=== PATIENT | male | born 1995 | race Caucasian/White ===

== ENCOUNTER 2019-12-02 17:12 | Emergency (ER) | payer SELFPAY ==
[~2019-12-02] VITALS: Ht 174 cm; Wt 103.0 kg
[2019-12-02 17:22] VITALS: BP 143/75
--- NOTE | 2019-12-02 17:32 | ED Upper Extremity ---
General Chief Complaint: Upper Extremity Stated Complaint: SMASHED RIGHT ARM,SWELLING/PAIN Source: patient Exam Limitations: no limitations History of Present Illness Date Seen by Provider: Dec 02, 2019 Time Seen by Provider: 17:13 Initial Comments 24-year-old male presenting with complaints of right elbow and forearm pain. 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 He reports that he was coming up alongside another forklift and many increased his head up off of he accelerated her it was supposed to stop but it did not stop. The forklift his being sent maintenance because of this. When the forklift did not stop it ended up smashing his right elbow and forearm between the two forklifts. He had some pain but as the day progressed he noticed he had tingling/numbness like his fingers were asleep if he straightened his arm out. His hay wanted him to come get xrays and be checked out in the ED. He already did a urine drug test at work. He has not taken anything for pain since the injury around 1400 this afternoon. Allergies and Home Medications Allergies Uncoded Allergies: Miguel (Allergy, Unknown, 12/02/19) Home Medications Ibuprofen 800 Mg Tablet, 800 MG PO Q8H PRN for PAIN Prescribed by: LISSETT CORONEL on 12/02/19 5506 Patient Home Medication List Home Medication List Reviewed: Yes Review of Systems Constitutional: No chills, No fever EENTM: no symptoms reported Respiratory: no symptoms reported Cardiovascular: no symptoms reported Gastrointestinal: no symptoms reported Genitourinary: no symptoms reported Musculoskeletal: see HPI Skin: No change in color (no bruising showing up yet on his elbow/forearm) Psychiatric/Neurological: Tingling (right hand and fingers tingle and feel like they are asleep when he straightens his arm out) Past Djwmzlp-Yhfvxy-Wrqzai Hx Past Med/Social Hx: Reviewed Nursing Past Med/Soc Hx Patient Social History Alcohol Use: Denies Use Recreational Drug Use: No Smoking Status: Current Everyday Smoker Type Used: Cigarettes 2nd Hand Smoke Exposure: No Recent Foreign Travel: No Contact w/Someone Who Travel: No Recent Hopitalizations: No Physical Abuse: No Sexual Abuse: No Mistreated: No Fear: No Seasonal Allergies Seasonal Allergies: No Past Medical History Surgeries: Yes Tonsillectomy Respiratory: No Cardiac: No Neurological: No Genitourinary: No Gastrointestinal: No Musculoskeletal: No Endocrine: No HEENT: No Cancer: No Psychosocial: No Integumentary: No Blood Disorders: No Physical Exam Vital Signs Vital Signs - First Documented 12/02/19 17:22 Temp 37.0 Pulse 86 Resp 16 B/P (MAP) 143/75 (97) Pulse Ox 96 O2 Delivery Room Air Capillary Refill : Height, Weight, BMI Height: '" Weight: lbs. oz. kg; BMI Method: General Appearance: WD/WN, no apparent distress Cardiovascular: normal peripheral pulses Elbow/Forearm: normal ROM, Right, bone tenderness, deformity, ecchymosis, pain, soft tissue tenderness, swelling (mild) Wrist: Yes normal inspection, Yes non-tender, Yes no evidence of injury, Yes normal ROM Hand: normal inspection, non-tender, no evidence of injury, normal ROM Neurologic/Tendon: normal motor functions, normal tendon functions, sensory deficit (reports that has sensation intact to light touch on right hand and fingers but that it feels dulled compared to left hand) Neurologic/Psychiatric: alert, oriented x 3 Skin: normal color, warm/dry Progress/Results/Core Measures Results/Orders My Orders Orders - LISSETT CORONEL MD Elbow 3 View Right (12/02/19 17:25) Forearm 2 View Right (12/02/19 17:25) Ice: Apply To Affected Area (12/02/19 17:25) Elevate Affected Extremity (12/02/19 17:25) Vital Signs/I&O 12/02/19 17:22 Temp 37.0 Pulse 86 Resp 16 B/P (MAP) 143/75 (97) Pulse Ox 96 O2 Delivery Room Air Progress Progress Note #1: Progress Note ice and elevate elbow and proximal forearm where he had injury. offered ibuprofen but pt stated that his employer was very strict about medicine and he would have to get permission before taking anything. Order xrays of right elbow and forearm. Progress Note #2: Progress Note No acute fracture or dislocation seen on imaging. Treat symptomatically and rest right arm for next week. See Work comp clinic Friday or Friday for follow up. Limit use of right arm to no more than 5 pounds of pushing, pulling, lifting for next week. Counseled to avoid compression for next few days as it may aggravate the nerve contusion. Diagnostic Imaging Diagonstic Imaging: Xray Plain Films/CT/US/NM/MRI: forearm, elbow Comments [facility], [place] NAME: PJ LOFTON [facility] REC#: [id number] PT STATUS: REG ER : 1995 PHYSICIAN: LISSETT CORONEL MD ADMIT DATE: 12/02/19/ER FS Draft Date of Exam:12/02/19 ELBOW 3 VIEW RIGHT INDICATION: Smashed arm in between forklifts today. Pain. EXAMINATION: Right elbow, 12/02/2019. FINDINGS: Three views of the elbow. There is no evidence for an acute fracture or dislocation. The joint spaces are well maintained. There is no significant soft tissue swelling. IMPRESSION: No acute process. Dictated on workstation # [id number] Dict: 12/02/19 174 Trans: 12/02/191750 PJE [id number] Interpreted by: ISSA ANAND MD Electronically signed by: [facility] [place] NAME: PJ LOFTON [facility] REC#: [id number] PT STATUS: REG ER : 1995 PHYSICIAN: LISSETT CORONEL MD ADMIT DATE: 12/02/19/ER FS Draft Date of Exam:12/02/19 FOREARM 2 VIEW RIGHT INDICATION: Smashed arm in between forklifts. EXAMINATION: Right forearm, 12/02/2019. FINDINGS: Three views of the forearm. There is no evidence for an acute fracture or dislocation. The joint spaces are well maintained. There is no significant soft tissue swelling. IMPRESSION: No acute process. Dictated on workstation # [id number] Dict: 12/02/191745 Trans: 12/02/19 175 PJE [id number] Interpreted by: ISSA ANAND MD Electronically signed by: Departure Impression Primary Impression: Crushing injury of right elbow, initial encounter Additional Impression: Contusion of right ulnar nerve Qualified Codes: S54.01XA - Injury of ulnar nerve at forearm level, right arm, initial encounter Disposition: 01 HOME, SELF-CARE Condition: Stable Departure-Patient Inst. Decision time for Depature: 18:03 Referrals: NO,LOCAL PHYSICIAN (PCP/Family) Primary Care Physician Patient Instructions: Crush Injury (DC), Contusion (DC) Add. Discharge Instructions: Use ice 15-20 minutes every few hours to help with swelling and pain. Use Ibuprofen 800 mg every 8 hours to help with inflammation and pain. Check back with Work Comp clinic for follow up FridayDecember 02 or FridayDecember 05. Limit use of Right arm to no lifting, pulling and/or pushing over 5 pounds through December 08 All discharge instructions reviewed with patient and/or family. Voiced understan iman. Scripts Ibuprofen (Ibuprofen) 800 Mg Tablet 800 MG PO Q8H PRN for PAIN for 10 Days, #30 TAB 0 Refills Prov: LISSETT CORONEL MD 12/02/19 LISSETT CORONEL MD Dec 02, 2019 17:32
--- NOTE | 2019-12-02 17:52 | Diagnostic Imaging Report ---
INDICATION: Smashed arm in between forklifts today. Pain. EXAMINATION: Right elbow, 12/02/2019. FINDINGS: Three views of the elbow. There is no evidence for an acute fracture or dislocation. The joint spaces are well maintained. There is no significant soft tissue swelling. IMPRESSION: No acute process. Dictated by: Dictated on workstation # [id number]
--- NOTE | 2019-12-02 17:53 | Diagnostic Imaging Report ---
INDICATION: Smashed arm in between forklifts. EXAMINATION: Right forearm, 12/02/2019. FINDINGS: Three views of the forearm. There is no evidence for an acute fracture or dislocation. The joint spaces are well maintained. There is no significant soft tissue swelling. IMPRESSION: No acute process. Dictated by: Dictated on workstation # [id number]
[2019-12-02] MEDS ORDERED: IBUP-1780 PO (18:06)
== END 2019-12-02 18:10 | disposition home or self-care (01) ==
LOC: ER FS 17:14
DX: S57.01XA Crushing injury of right elbow, initial encounter (principal); S54.01XA Injury of ulnar nerve at forearm level, right arm, initial encounter; F17.210 Nicotine dependence, cigarettes, uncomplicated; Z88.4 Allergy status to anesthetic agent; W24.0XXA Contact with lifting devices, not elsewhere classified, initial encounter
CPT/HCPCS: 73080; 73090

== ENCOUNTER 2020-01-10 23:41 | Emergency (ER) | payer SELFPAY ==
[~2020-01-10 23:41] MED LIST: IBUP-1780 PO
[2020-01-11] MEDS ORDERED: DICL75TA2 PO (00:01)
[2020-01-11] MEDS ORDERED: CEPH500T PO (00:01)
--- NOTE | 2020-01-11 00:01 | ED EENT ---
History of Present Illness General Chief Complaint: Dental Problems/Pain Stated Complaint: TOOTH INFECTION Source: patient, RN/MD, RN notes reviewed, old records Exam Limitations: no limitations History of Present Illness Date Seen by Provider: Jan 10, 2020 Time Seen by Provider: 23:45 Initial Comments This patient is a 24-year-old male that presents to the emergency department with complaint of fractured tooth concerns for possible abscess. States it started earlier today. Patient does not appear to be in acute pain is drinking a bottle chocolate milk during exam. Timing/Duration: this morning Location: mouth, dental Prearrival Treatment: no prearrival treatment Allergies and Home Medications Allergies Uncoded Allergies: Miguel (Allergy, Unknown, 12/02/19) Home Medications Ibuprofen 800 Mg Tablet, 800 MG PO Q8H PRN for PAIN Prescribed by: LISSETT CORONEL on 12/02/19 1806 Patient Home Medication List Home Medication List Reviewed: Yes Review of Systems Review of Systems Constitutional: see HPI Eyes: Denies No Symptoms Reported, Denies See HPI, Denies Blindness, Denies Blurred Vision, Denies Drainage, Denies Decreased Acuity, Denies Foreign Body Sensation, Denies Inflammation, Denies Pain, Denies Photophobia, Denies Previous Injury, Denies Shadows, Denies Tunnel Vision, Denies Vision Changes, Denies Contact Lenses, Denies Glasses, Denies Other Ears: Denies No Symptoms Reported, Denies See HPI, Denies Dizziness, Denies Pain, Denies Tinnitus, Denies Bloody Discharge, Denies Clear Discharge, Denies Purulent Discharge, Denies Serosanguinous Discharge, Denies Previous Injury, Denies Other Nose: denies no symptoms reported, denies see HPI, denies clots, denies congestion, denies epistaxis, denies pain, denies bloody discharge, denies clear discharge, denies purulent discharge, denies serosanguinous discharge, denies previous injury, denies other Mouth: denies no symptoms reported; see HPI; denies clots, denies loose teeth; pain; denies swelling, denies bloody discharge, denies clear discharge, denies purulent discharge, denies serosanguinous discharge, denies previous injury, denies other Throat: denies no symptoms reported, denies see HPI, denies pain, denies swelling, denies discharge, denies neck stiffness, denies hoarse, denies aphonia, denies muffled, denies painful swallowing, denies difficulty with fluids, denies previous injury, denies other Respiratory: No no symptoms reported, No see HPI, No cough, No dyspnea on exertion, No hemoptysis, No orthopnea, No phlegm, No short of breath, No stridor, No wheezing, No other Cardiovascular: No no symptoms reported, No see HPI, No chest pain, No edema, No Hx of Intervention, No palpitations, No syncope, No vascular heart diseas, No other Gastrointestinal: No RUQ, No LUQ, No RLQ, No LLQ, No no symptoms reported, No see HPI, No abdominal pain, No constipation, No diarrhea, No dysphagia, No hematemesis, No heartburn, No jaundice, No loss of appetite, No melena, No nausea, No vomiting, No other All Other Systems Reviewed Negative Unless Noted: Yes Past Authxre-Awkhng-Ogeqpz Hx Patient Social History Alcohol Use: Denies Use Recreational Drug Use: No Smoking Status: Never a Smoker Type Used: Cigarettes 2nd Hand Smoke Exposure: No Recent Foreign Travel: No Contact w/Someone Who Travel: No Recent Hopitalizations: No Physical Abuse: No Sexual Abuse: No Seasonal Allergies Seasonal Allergies: No Past Medical History Surgeries: Yes Tonsillectomy Respiratory: No Cardiac: No Neurological: No Genitourinary: No Gastrointestinal: No Musculoskeletal: No Endocrine: No HEENT: No Cancer: No Psychosocial: No Integumentary: No Blood Disorders: No Physical Exam Height, Weight, BMI Height: '" Weight: lbs. oz. kg; 34.00 BMI Method: General Appearance: WD/WN, no apparent distress, mild distress, moderate distress, severe distress, cachetic Mouth/Throat: dental tenderness (dental fracture right lower molar.) Cardiovascular: normal peripheral pulses, regular rate, rhythm, no edema, no gallop, no JVD, no murmur Respiratory: chest non-tender, lungs clear, normal breath sounds, no respiratory distress, no accessory muscle use Gastrointestinal: normal bowel sounds, non tender, soft, no organomegaly, no pulsatile mass Skin: normal color, warm/dry Progress/Results/Core Measures Progress Progress Note : Time: 23:59 Progress Note Take medications as instructed. Follow-up with dentistry her primary care physician as soon as possible. May use Tylenol Motrin when necessary as needed. Anbesol or Orajel when necessary as needed. Departure Impression Primary Impression: Dental caries Additional Impression: Fractured tooth Disposition: HOME, SELF-CARE Condition: Stable Departure-Patient Inst. Decision time for Depature: 00:00 Referrals: NO,LOCAL PHYSICIAN (PCP) Primary Care Physician Patient Instructions: Fractured Tooth (DC), Tooth Decay, Adult (DC) Add. Discharge Instructions: Take medications as instructed. Follow-up with dentistry her primary care physician as soon as possible. May use Tylenol Motrin when necessary as needed. Anbesol or Orajel when necessary as needed. All discharge instructions reviewed with patient and/or family. Voiced understanding. Scripts Diclofenac Sodium (Diclofenac Sodium) 75 Mg Tablet.dr 75 MG PO BID for 10 Days, #20 TAB 0 Refills Prov: FAN DOWELL MD 01/11/20 Cephalexin (Cephalexin) 500 Mg Tablet 500 MG PO BID, #20 TAB 0 Refills Prov: FAN DOWELL MD 01/11/20 FAN DOWELL MD Jan 11, 2020 00:01
[2020-01-11 00:03] VITALS: BP 170/87
== END 2020-01-11 00:05 | disposition home or self-care (01) ==
LOC: EDUNIT# 23:41 → ER FS 23:44
DX: S02.5XXA Fracture of tooth (traumatic), initial encounter for closed fracture (principal); K02.9 Dental caries, unspecified; X58.XXXA Exposure to other specified factors, initial encounter
CPT/HCPCS: 99282

== ENCOUNTER 2020-09-18 22:35 | Emergency (ER) | payer SELFPAY ==
[~2020-09-18 22:35] MED LIST changes: +CEPH500T PO; +DICL75TA2 PO
--- NOTE | 2020-09-18 22:41 | ED EENT ---
History of Present Illness General Stated Complaint: TOOTH PAIN History of Present Illness Date Seen by Provider: Sep 18, 2020 Time Seen by Provider: 22:41 Initial Comments 25-year-old male presents with left-sided dental abscess. Patient has multiple severe dental caries on the left side with a couple infected teeth. Patient reports to be about 8 to 10 days before he has been to see a dentist. Patient here for an antibiotic. Reports that the symptoms are in the pain started this morning. He denies any fevers, jaw swelling, difficulty swallowing or other systemic complaints Allergies and Home Medications Allergies Uncoded Allergies: Miguel (Allergy, Unknown, 12/02/19) Home Medications Cephalexin 500 Mg Tablet, 500 MG PO BID Prescribed by: FAN DOWELL on 01/11/20 0001 Diclofenac Sodium 75 Mg Tablet.dr, 75 MG PO BID Prescribed by: FAN DOWELL on 01/11/20 0001 Ibuprofen 800 Mg Tablet, 800 MG PO Q8H PRN for PAIN Prescribed by: LISSETT CORONEL on 12/02/19 1806 Patient Home Medication List Home Medication List Reviewed: Yes Review of Systems Review of Systems Constitutional: no symptoms reported Eyes: No Symptoms Reported Ears: No Symptoms Reported Nose: no symptoms reported Mouth: see HPI Throat: no symptoms reported Respiratory: no symptoms reported Cardiovascular: no symptoms reported Musculoskeletal: no symptoms reported Past Gqafmxw-Slddyl-Nugnyr Hx Past Med/Social Hx: Reviewed Nursing Past Med/Soc Hx Patient Social History Type Used: Cigarettes 2nd Hand Smoke Exposure: No Recent Hopitalizations: No Seasonal Allergies Seasonal Allergies: No Past Medical History Surgeries: Yes Tonsillectomy Respiratory: No Cardiac: No Neurological: No Genitourinary: No Gastrointestinal: No Musculoskeletal: No Endocrine: No HEENT: No Cancer: No Psychosocial: No Integumentary: No Blood Disorders: No Physical Exam Vital Signs Vital Signs - First Documented 09/18/20 22:40 Temp 36.9 Pulse 88 Resp 16 B/P (MAP) 171/86 (114) Pulse Ox 100 O2 Delivery Room Air Height, Weight, BMI Height: '" Weight: lbs. oz. kg; 34.00 BMI Method: General Appearance: WD/WN, no apparent distress Mouth/Throat: other (Multiple left-sided severe dental caries with associated infection and early abscess) Neck: full range of motion Cardiovascular: normal peripheral pulses Respiratory: lungs clear Gastrointestinal: non tender, soft Neurologic/Psychiatric: alert, normal mood/affect, oriented x 3 Skin: normal color, warm/dry Progress/Results/Core Measures Results/Orders My Orders Orders - JACKIE KIMBROUGH DO Amoxicillin Capsule (Polymox Capsule) (09/18/20 22:48) Vital Signs/I&O 09/18/20 22:40 Temp 36.9 Pulse 88 Resp 16 B/P (MAP) 171/86 (114) Pulse Ox 100 O2 Delivery Room Air Departure Impression Primary Impression: Dental abscess Additional Impression: Dental caries Disposition: HOME, SELF-CARE Condition: Stable Departure-Patient Inst. Referrals: NO,LOCAL PHYSICIAN (PCP/Family) Primary Care Physician Patient Instructions: Tooth Abscess (DC), Tooth Decay, Adult (DC) Add. Discharge Instructions: Take medications as prescribed, follow-up with your dentist as soon as possible Scripts Amoxicillin (Amoxicillin) 500 Mg Capsule 500 MG PO TID, #30 CAP 0 Refills Prov: JACKIE KIMBROUGH DO 09/18/20 Diclofenac Sodium (Diclofenac Sodium) 75 Mg Tablet.dr 75 MG PO BID for 10 Days, #20 TAB 0 Refills Prov: JACKIE KIMBROUGH DO 09/18/20 JACKIE KIMBROUGH DO Sep 18, 2020 22:41
[2020-09-18] MEDS ORDERED: AMOXICILLIN 500 MG (POLYMOX) CAP PO STA (22:48)
[2020-09-18 23:02] VITALS: BP 171/86
[2020-09-18] MEDS ORDERED: AMOX500C2 PO (23:03)
[2020-09-18] MEDS ORDERED: DICL75TA2 PO (23:03)
== END 2020-09-18 23:06 | disposition home or self-care (01) ==
LOC: EDUNIT# 22:35 → ER FS 22:36
DX: K02.9 Dental caries, unspecified (principal); K04.7 Periapical abscess without sinus
CPT/HCPCS: 99283

== ENCOUNTER → 2022-10-21 | Outpatient (CLI) | payer BC ==
[~2022-10-21] MED LIST changes: +AMOX500C2 PO
== END ==
LOC: CARD 13:26
PROVIDERS: ATTEND Registered Nurse Emergency
DX: M25.511 Pain in right shoulder (principal); R00.0 Tachycardia, unspecified; R00.2 Palpitations; R42 Dizziness and giddiness
CPT/HCPCS: 93225; 93226

== ENCOUNTER → 2022-10-29 | Outpatient (CLI) | payer BC | LOC: RAD 14:28 | PROVIDERS: ATTEND Orthopaedic Surgery | DX: M54.12 Radiculopathy, cervical region (principal); Z53.9 Procedure and treatment not carried out, unspecified reason ==

== ENCOUNTER → 2022-12-13 | Outpatient (CLI) | payer BC ==
--- NOTE | 2022-12-13 15:26 | Diagnostic Imaging Report ---
PROCEDURE: MR imaging cervical spine without contrast. TECHNIQUE: Multiplanar, multisequence MR imaging of the cervical spine was performed without contrast. Patient could not tolerate the entire exam, and axial images were not obtained. INDICATION: Chronic neck pain. FINDINGS: There is loss of cervical lordosis. Vertebral body heights and disc spaces are maintained. There is no evidence of disc protrusion. No significant stenosis is identified. There is no marrow signal abnormality to indicate a fracture, and no abnormal signal is seen within the cervical spinal cord. IMPRESSION: Reversal of cervical lordosis may be secondary to muscle spasm. Otherwise, no acute abnormality is identified. Dictated by: Dictated on workstation # [id number]
== END ==
LOC: RAD 13:37
PROVIDERS: ATTEND Orthopaedic Surgery
DX: M54.12 Radiculopathy, cervical region (principal)
CPT/HCPCS: 72141